=== PATIENT | female | born 1960 | race African-American/Black ===

== ENCOUNTER 2018-09-03 14:30 | Emergency (ER) | payer OTHER ==
[~2018-09-03] VITALS: Ht 162.6 cm; Wt 113.4 kg
[2018-09-03 14:53] VITALS: BP 134/83
[2018-09-03] MEDS ORDERED: HYDROcodone/APAP 5/325MG 1 TAB TABLET PO ONE (15:00)
--- NOTE | 2018-09-03 15:27 | RAD ---
Three-view left ankle study Clinical indications: Patient slipped and fell last night. Left ankle pain. FINDINGS: There is an oblique fracture of the distal left fibular metaphysis. There is minimal lateral displacement of the distal fracture segment by 2 mm. There is an avulsion fracture of the medial malleolus. There is widening of the medial aspect of the mortise ankle joint consistent with disruption of the deltoid ligament. No anterior or posterior subluxation of the talus with respect to the tibial plateau is seen otherwise. Posterior malleolus appears intact. No lytic process is seen. Plantar spur of the calcaneus is evident. IMPRESSION: Post traumatic fracture of the distal left fibula. Avulsion fracture of the medial malleolus with associated deltoid ligament disruption. Electronically signed by: Cayetano Shaw MD (09/03/2018 3:24 PM) [facility] [place]
[2018-09-03] MEDS ORDERED: HYDR-3164 PO (15:42)
--- NOTE | 2018-09-03 15:44 | PHYS DOC ---
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 She has been unable to bear weight since the injury. She denies any other injury. (JAY ARMIJO MUSIC PUBLICIST) Review of Systems Review of Systems Constitutional: Denies fever or chills [] Respiratory: Denies cough or shortness of breath [] Cardiovascular: No additional information not addressed in HPI [] GI: Denies abdominal pain, nausea, vomiting, bloody stools or diarrhea [] : Denies dysuria or hematuria [] Musculoskeletal: See history of present illness Integument: Denies rash or skin lesions [] Neurologic: Denies headache, focal weakness or sensory changes [] Endocrine: Denies polyuria or polydipsia [] All other systems were reviewed and found to be within normal limits, except as documented in this note. (JAY ARMIJO MUSIC PUBLICIST) Current Medications Current Medications Current Medications Medications (Trade) Dose Ordered Sig/Vickie Start Time Stop Time Status Last Admin Dose Admin Acetaminophen/ Hydrocodone Bitart (Lortab 5/325) 1 tab 1X ONCE 09/03/18 15:00 09/03/18 15:06 DC 09/03/18 15:21 1 TAB (REX LOMBARDO MD) Allergies Allergies Allergies Coded Allergies Type Severity Reaction Last Updated Verified No Known Drug Allergies 09/06/18 No (REX LOMBARDO MD) Physical Exam Physical Exam Constitutional: Well developed, well nourished, no acute distress, non-toxic appearance. [] Cardiovascular:Heart rate regular rhythm, no murmur [] Lungs & Thorax: Bilateral breath sounds clear to auscultation [] Abdomen: Bowel sounds normal, soft, no tenderness, no masses, no pulsatile masses. [] Skin: Warm, dry, no erythema, no rash. [] Back: No tenderness, no CVA tenderness. [] Extremities: tenderness to left ankle with edema and ecchymosis noted, no cyanosis, no clubbing, ROM decreased due to pain, pulses and sensation are intact distal to injury. Neurologic: Alert and oriented X 3, normal motor function, normal sensory function, no focal deficits noted. [] Psychologic: Affect normal, judgement normal, mood normal. [] (JAY ARMIJO APRN) Current Patient Data Vital Signs Vital Signs Date Time Temp Pulse Resp B/P (MAP) Pulse Ox O2 Delivery O2 Flow Rate FiO2 09/03/18 15:21 18 99 Room Air 09/03/18 14:53 98.8 99 134/83 (100) 98.8 (REX LOMBARDO MD) EKG EKG [] (JAY ARIMJO APRN) Radiology/Procedures Radiology/Procedures []PATIENT: NARENDRA PARISOUNT: [id number]#: [id number] : 1960 LOCATION: ER AGE: 58 SEX: F EXAM STATUS: PRE ER ORD. PHYSICIAN: JAY ARMIJO APRN REASON: tripped and fell last night PROCEDURE: ANKLE LEFT 3V Three-view left ankle study Clinical indications: Patient slipped and fell last night. Left ankle pain. FINDINGS: There is an oblique fracture of the distal left fibular metaphysis. There is minimal lateral displacement of the distal fracture segment by 2 mm. There is an avulsion fracture of the medial malleolus. There is widening of the medial aspect of the mortise ankle joint consistent with disruption of the deltoid ligament. No anterior or posterior subluxation of the talus with respect to the tibial plateau is seen otherwise. Posterior malleolus appears intact. No lytic process is seen. Plantar spur of the calcaneus is evident. IMPRESSION: Post traumatic fracture of the distal left fibula. Avulsion fracture of the medial malleolus with associated deltoid ligament disruption. Electronically signed by: Delmy Shaw MD (09/03/2018 3:24 PM) [facility] DICTATED and SIGNED BY: DELMY SHAW MD DATE: 09/03/18 1524 (JAY ARMIJO APRN) Course & Med Decision Making Course & Med Decision Making Pertinent Labs and Imaging studies reviewed. (See chart for details) The patient was given [place] for pain control in the emergency department. The patient was placed in a posterior short leg splint and was given crutches and crutch training. She is to follow-up with Dr. Hawthorne on Wednesday for further evaluation and treatment of this fracture and ligament injury. (JAY ARMIJO APRN) Course & Med Decision Making Staff Physician Addendum: I was working in the ER during the course of this patient's visit. I was available for consultation as needed, but I was not directly involved in the care of this patient. (REX LOMBARDO MD) Dragon Disclaimer Dragon Disclaimer This electronic medical record was generated, in whole or in part, using a voice recognition dictation system. (JAY ARMIJO APRN) Departure Departure Impression: Primary Impression: Fracture of distal fibula Additional Impressions: Avulsion fracture of medial malleolus Tear of deltoid ligament of ankle Disposition: 01 HOME, SELF-CARE Condition: STABLE Referrals: NON,STAFF (PCP) ZULEIKA HAWTHORNE MD Patient Instructions: Cast or Splint Care, Fibular Fracture, Adult, Treated Without Immobilization Additional Instructions: Take the medication as directed. Do not drive or operate heavy machinery while taking this medication. Follow-up with orthopedics for further management of your injury. If worsening return to the emergency department. Problem Qualifiers JAY ARMIJO APRN Sep 03, 2018 15:44 REX LOMBARDO MD Sep 13, 2018 16:19
[2018-09-06] MEDS ORDERED: HYDR-3165 PO (16:57)
== END 2018-09-03 16:00 | disposition home or self-care (01) ==
LOC: ER 14:30
DX: S82.52XA Displaced fracture of medial malleolus of left tibia, initial encounter for closed fracture (principal); S82.832A Other fracture of upper and lower end of left fibula, initial encounter for closed fracture; S93.422A Sprain of deltoid ligament of left ankle, initial encounter; W01.0XXA Fall on same level from slipping, tripping and stumbling without subsequent striking against object, initial encounter; Y93.89 Activity, other specified; Y92.89 Other specified places as the place of occurrence of the external cause; Y99.8 Other external cause status
CPT/HCPCS: 29515; 73610; 99284-25

== ENCOUNTER 2018-09-06 10:56 | Day surgery (SDC) | payer OTHER ==
[~2018-09-06 10:56] MED LIST: HYDR-3164 PO
[2018-09-06] MEDS ORDERED: IV RINGERS,LACTATED 1000ML 1,000 ML IV SCH ×2 (11:15→16:46)
[2018-09-06] MEDS ORDERED: ALBU2.5V8 INH (11:30)
[2018-09-06] MEDS ORDERED: BUDE10.22 IH (11:30)
[2018-09-06] MEDS ORDERED: fentaNYL PF VIAL 100 MCG/2 ML VIAL IV ONE (12:45)
[2018-09-06] MEDS ORDERED: PROPOFOL 20 ML IV ONE (13:07)
[2018-09-06] MEDS ORDERED: LIDOCAINE 2% PF 5 ML VIAL. ONE (13:07)
[2018-09-06] MEDS ORDERED: fentaNYL PF VIAL 100 MCG/2 ML VIAL ONE (13:08)
[2018-09-06] MEDS ORDERED: MIDAZOLAM HCL/PF 2 MG/2 ML VIAL. ONE (13:08)
[2018-09-06] MEDS ORDERED: ONDANSETRON PF 4 MG/2 ML VIAL. ONE (13:09)
[2018-09-06] MEDS ORDERED: DEXAMETHASONE SOD PHOS 20 MG/5 ML VIAL. ONE (13:09)
[2018-09-06] MEDS ORDERED: FAMOTIDINE 20 MG/2 ML VIAL ONE (13:09)
[2018-09-06] MEDS ORDERED: SEVOFLURANE 61 TO 120 MINUTES. IH ONE (16:36)
[2018-09-06] MEDS ORDERED: HYDR-3165 PO (16:57)
[2018-09-06] MEDS ORDERED: PROCHLORPERAZINE 10 MG/2 ML VIAL. IV PRN (17:00)
[2018-09-06] MEDS ORDERED: HYDROmorphone 2 MG/ML VIAL IV PRN (17:00)
[2018-09-06] MEDS ORDERED: fentaNYL PF VIAL 100 MCG/2 ML VIAL IV PRN (17:00)
[2018-09-06] MEDS ORDERED: ONDANSETRON PF 4 MG/2 ML VIAL. IV PRN (17:00)
[2018-09-06] MEDS ORDERED: LIDOCAINE 1% PF 2 ML VIAL. ID PRN (17:00)
[2018-09-06] MEDS: fentaNYL PF VIAL 100 MCG/2 ML VIAL IV PRN ×2 (17:04→17:22)
[2018-09-06] MEDS: MORPHINE SULFATE 2 MG/ML VIAL. IV PRN ×2 (17:04→17:23)
--- NOTE | 2018-09-06 17:05 | DISCH ---
DISCHARGE INSTRUCTIONS Condition on Discharge Condition on Discharge: Stable Activity After Discharge Activity Instructions for Disc: Other, see below Weight Bearing Status after Di: Touch down weight bearing Diet after Discharge Diet after Discharge: Regular Wound Incision Care Wound/Incision Care: Ice to area for comfort, Keep wound elevated, Do not change dressing Contacting the DRJennifer after DC Call your doctor for: Concerns you may have Follow-Up Follow up with: Eduardo 2 weeks DAO GILLIAM MD Sep 06, 2018 17:05
--- NOTE | 2018-09-06 17:12 | PDOC4 ---
Operative Note Operative Note Date of surgery: 09/06/2018 Preoperative diagnosis: Distal fibula fracture with lateral talus shift Postoperative diagnosis: Same with appearance of additional syndesmotic injury. Operative procedure: Operative reduction internal fixation left distal fibula fracture with syndesmotic screw fixation Surgeon: Eduardo Anesthesia: Gen. Estimated blood loss: 15 mL Complications: None Operative indications: Please see my detailed history and physical for detailed operative indications and note that patient broke her ankle over the weekend had a displaced distal fibula fracture with lateral shift of the talus. I went over x-rays with her and the anatomy of the ankle joint the necessity of anatomically restoring the ankle joint mortise and I went over the proposed operative procedure the rationale the postoperative restrictions and possibility of infection nonhealing continued pain nerve or blood vessel damage medical or other anesthetic consultations among others she is actually somewhat familiar with this from similar treatment of a previous right ankle injury and she wishes to proceed with surgical evaluation and treatment. Operative text: Patient was identified procedure verified patient placed in the supine position on the operating table. After adequate amounts of general anesthesia were administered the left lower extremity was prepped and draped in standard sterile fashion with a thigh tourniquet. After timeout was performed patient procedure identified and verified the left lower extremity was exsanguinated by Esmarch bandage tourniquet inflated to 350 mmHg a lateral incision was made subperiosteal dissection was carried out and the ankle joint was assessed. The ankle joint mortise spacing was not completely restored by reduction of the fibula alone therefore a 6 hole distal fibular locking plate was bent slightly a shaft screw was placed distal locking screws were placed syndesmotic screws then were placed and provided excellent reduction of the ankle joint mortise the remaining shaft screws were then positioned achieving anatomic reduction and multiple fluoroscopic views. Thorough irrigation carried out normal saline solution subcutaneous closure with buried Vicryl suture skin closure with octavio sterile well-padded posterior splint was placed toes were noted be warm pink find deflation of tourniquet patient was returned recovery room in stable condition having tolerated the procedure well DAO GILLIAM MD Sep 06, 2018 17:12
[2018-09-06] MEDS ORDERED: HYDROcodone/APAP 7.5/325MG 1 TAB TABLET PO ONE (17:15)
[2018-09-06] MEDS ORDERED: MORPHINE SULFATE 2 MG/ML VIAL. IV ONE (18:00)
[2018-09-06 18:51] VITALS: BP 110/68
== END 2018-09-06 18:51 | disposition home or self-care (01) ==
LOC: SURG 10:56
PROVIDERS: ATTEND Orthopaedic Surgery
DX: S82.832A Other fracture of upper and lower end of left fibula, initial encounter for closed fracture (principal); S93.432A Sprain of tibiofibular ligament of left ankle, initial encounter; J45.909 Unspecified asthma, uncomplicated; Z98.890 Other specified postprocedural states; F17.210 Nicotine dependence, cigarettes, uncomplicated; Z79.899 Other long term (current) drug therapy; M19.90 Unspecified osteoarthritis, unspecified site; Z72.89 Other problems related to lifestyle; W22.8XXA Striking against or struck by other objects, initial encounter; Y93.89 Activity, other specified; Y92.89 Other specified places as the place of occurrence of the external cause; Y99.8 Other external cause status
CPT/HCPCS: 27829; 76000; A7015; C1713; J0696; J1100; J2001; J2250; J2270; J2405; J2704; J3010; J3490; J7120

== ENCOUNTER → 2018-10-12 | Outpatient (CLI) | payer OTHER ==
[~2018-10-12] MED LIST changes: +ALBU2.5V8 INH; +BUDE10.22 IH; +HYDR-3165 PO
--- NOTE | 2018-10-12 14:46 | RAD ---
Two-view chest dated 10/12/2018. Comparison made to October 16, 2007. CLINICAL INDICATION: Shortness of breath. FINDINGS: PA and lateral views of the chest were obtained. Heart and mediastinal contours are stable. Prominent interstitial markings throughout both lungs, similar given differences in technique. No consolidation or pleural effusion. No pneumothorax. IMPRESSION: No acute radiographic abnormality. Stable findings compared to 10/16/2007. Electronically signed by: Jaior Grajeda MD (10/12/2018 2:43 PM) [facility]
== END | disposition home or self-care (01) ==
LOC: RAD 11:54
PROVIDERS: ATTEND Internal Medicine Pulmonary Disease
DX: R06.02 Shortness of breath (principal); J45.909 Unspecified asthma, uncomplicated
CPT/HCPCS: 71046

== ENCOUNTER 2018-11-29 06:14 | Day surgery (SDC) | payer OTHER ==
[~2018-11-29] VITALS: Ht 162.6 cm; Wt 108.9 kg
[~2018-11-29 06:14] MED LIST changes: +ALBU0.63 NEB; +GABA-585 PO; +HYDR-3135 PO; +TIZA4TAB2 PO
[2018-11-29] MEDS ORDERED: BUPIVAC MPF-EPI 0.5%-1:200000 30 ML VIAL. ONE (06:48)
--- NOTE | 2018-11-29 06:56 | DISCH ---
DISCHARGE INSTRUCTIONS Condition on Discharge Condition on Discharge: Stable Activity After Discharge Activity Instructions for Disc: Other, see below (recommend elevating left foot and ankle if not walking to minimize swelling) Weight Bearing Status after Di: Full weight bearing Diet after Discharge Diet after Discharge: Regular Wound Incision Care Wound/Incision Care: Change dressing (May remove dressing in 3 days then recommend large Band-Aid to prevent rubbing on the wound from socks or shoewear) Contacting the DRJennifer after DC Call your doctor for: Concerns you may have Follow-Up Follow up with: Dr. Clark 8 days Treatment/Equipment after DC Adaptive Equipment Issued: None DAO CLARK MD Nov 29, 2018 06:56
[2018-11-29] MEDS ORDERED: IV RINGERS,LACTATED 1000ML 1,000 ML IV SCH (07:00)
[2018-11-29] MEDS ORDERED: MORPHINE SULFATE 2 MG/ML VIAL. IV PRN (07:00)
[2018-11-29] MEDS ORDERED: ONDANSETRON PF 4 MG/2 ML VIAL. IV PRN (07:00)
[2018-11-29] MEDS ORDERED: fentaNYL PF VIAL 100 MCG/2 ML VIAL IV PRN ×2 (07:00)
[2018-11-29] MEDS ORDERED: ceFAZolin 2GM PREMIX 2 GM/50 ML BAG IV ONE (07:00)
[2018-11-29] MEDS ORDERED: PROCHLORPERAZINE 10 MG/2 ML VIAL. IV PRN (07:00)
[2018-11-29] MEDS ORDERED: LIDOCAINE 1% PF 2 ML VIAL. ID PRN (07:00)
[2018-11-29] MEDS ORDERED: HYDROmorphone 2 MG/ML VIAL IV PRN (07:00)
[2018-11-29] MEDS ORDERED: ONDANSETRON PF 4 MG/2 ML VIAL. ONE (07:05)
[2018-11-29] MEDS ORDERED: fentaNYL PF VIAL 100 MCG/2 ML VIAL ONE (07:05)
[2018-11-29] MEDS ORDERED: LIDOCAINE 2% PF 5 ML VIAL. ONE (07:05)
[2018-11-29] MEDS ORDERED: DEXAMETHASONE SOD PHOS 4 MG/ML VIAL ONE (07:05)
[2018-11-29] MEDS ORDERED: PROPOFOL 20 ML IV ONE (07:05)
[2018-11-29] MEDS ORDERED: SEVOFLURANE 16 TO 30 MINUTES. IH ONE (07:56)
--- NOTE | 2018-11-29 07:59 | PDOC4 ---
Operative Note Operative Note Date of surgery: 11/29/2018 Preoperative diagnosis: Retained syndesmotic screw hardware left ankle status post ORIF of ankle fracture with syndesmotic injury Postoperative diagnosis: Same Operative procedure: Removal syndesmotic screws �2 left ankle Surgeon: Eduardo Anesthesia: Gen. Estimated blood loss: 5 mL Complications: None Operative indications: Patient is a 58-year-old female that had undergone operative reduction internal fixation of a left ankle fracture about 3 months ago with placement of syndesmotic screw fixation. She has gone on to heal the ankle fracture uneventfully and is been weightbearing as tolerated and now presents for planned removal of syndesmotic screw fixation to allow the bones to articulate normally following ligament healing. I had previously gone over with her and reviewed today the rationale for keeping the rest of the plate and screw fixation intact but removal of the syndesmotic screws to allow normal function ing following the healing of the ligament, and because the superior of the 2 screws has showed some backing out and I expect to be potentially symptomatic as well. As with any surgery there is a small risk of infection or medical or anesthetic complications and I emphasized to her that the major issue is just protecting the incision until it heals keeping it elevated when she is not walking on it. She understands this and consents to surgical evaluation and treatment. Operative text: Patient was identified procedure verified patient placed in the supine position on the operating table. After adequate amounts of general anesthesia were administered the left lower extremity was prepped and draped in standard sterile fashion with a thigh tourniquet and after timeout was performed patient procedure identified and verified, syndesmotic screws were located over the midpoint of the incision and both syndesmotic screws were removed without difficulty. Ankle joint mortise and stability was demonstrated under fluoros copic guidance. Thorough irrigation carried out normal saline solution a total of 8 mL have percent Marcaine with epinephrine was instilled around the wound edges and skin closure with nylon suture in vertical mattress fashion sterile dressings were applied patient was returned to recovery room in stable condition having tolerated procedure well. Tourniquet was not used for the procedure DAO GILLIAM MD Nov 29, 2018 07:59
[2018-11-29 08:35] VITALS: BP 96/67
[2018-12-07] MEDS ORDERED: PRED20TA PO (22:43)
[2018-12-07] MEDS ORDERED: DIAZ5TAB PO (22:43)
[2018-12-24] MEDS ORDERED: AMIT50TA PO (19:29)
== END 2018-11-29 09:05 | disposition home or self-care (01) ==
LOC: SURG 06:14
PROVIDERS: ATTEND Orthopaedic Surgery
DX: Z47.2 Encounter for removal of internal fixation device (principal); J45.909 Unspecified asthma, uncomplicated; F17.210 Nicotine dependence, cigarettes, uncomplicated; Z98.890 Other specified postprocedural states
CPT/HCPCS: 20680; 76000; A7015; J0696; J1100; J2001; J2405; J2704; J3010; J3490

== ENCOUNTER → 2018-12-05 | Outpatient (CLI) | payer OTHER ==
[2018-11-29 08:35] VITALS: BP 96/67
[~2018-12-05] MED LIST changes: +DIAZ5TAB PO; +PRED20TA PO; +TIZA4TAB PO; -TIZA4TAB2 PO
--- NOTE | 2018-12-05 13:38 | RAD ---
CT CHEST WO CONTRAST Indication: Cough. Smoker. Exposure: One or more of the following individualized dose reduction techniques were utilized for this examination: 1. Automated exposure control 2. Adjustment of the mA and/or kV according to patient size 3. Use of iterative reconstruction technique. Technique: Standard imaging without intravenous contrast. Comparison: None FINDINGS: Visualized thyroid appears unremarkable. No significant pathologic lymph node enlargement is identified. Limited vascular exam without contrast. Aorta is nonaneurysmal. Ascending aorta measures about 3.5 cm. No pericardial or pleural effusion is identified. Emphysematous changes are identified. Linear opacities in the anterior right lower lobe, right middle lobe and anteroinferior right upper lobe, likely atelectasis or scarring. No consolidating infiltrates. Linear markings also identified in the lingula of the left lung. Trachea and mainstem bronchi are patent. Scans to the upper abdomen are limited due to technique but demonstrate no obvious acute finding. Degenerative changes of the spine. Vertebral body height is maintained. IMPRESSION: Linear opacities in both lungs, greater on the right. Most likely represent atelectasis or fibrosis. Acute inflammatory/infectious etiology considered less likely. No airspace lobar consolidative infiltrate is seen. Short-term follow-up could be of benefit if symptoms do not improve. Electronically signed by: Jairo Ndiaye MD (12/05/2018 1:36 PM) [facility]
== END | disposition home or self-care (01) ==
LOC: CT 11:41
PROVIDERS: ATTEND Internal Medicine Pulmonary Disease
DX: J43.9 Emphysema, unspecified (principal); J98.4 Other disorders of lung; F17.200 Nicotine dependence, unspecified, uncomplicated
CPT/HCPCS: 71250

== ENCOUNTER → 2019-01-23 | Outpatient (CLI) | payer OTHER ==
[2019-01-20 10:13] VITALS: BP 131/60
[~2019-01-23] MED LIST changes: +AMIT50TA PO; -TIZA4TAB PO; +TIZA4TAB2 PO; +ZOLPIDEM 5 MG TABLET. PO ONE
--- NOTE | 2019-01-24 09:10 | SLEEP ---
DATE OF STUDY: 01/23/2019 SLEEP STUDY ATTENDING PHYSICIAN: Roni Bruno MD REFERRING PHYSICIAN: Todd Liu MD The patient is a 58 years old, who weighs 226 pounds with a BMI of 48. The patient's [place] score was 3. The patient underwent sleep study performed at [facility] with a diagnostic study. During the night study, the patient spent 441 minutes in bed and slept for 289 minutes with a low sleep efficiency of 65%. Sleep latency was prolonged at 146 minutes with a REM latency of 86 minutes. Overall, sleep architecture showed normal stage 1 sleep, increased stage 2 sleep, normal slow wave and reduced REM sleep, which is 14% of total sleep time. During the night study, the patient had 1 obstructive apnea, no mixed or central apneas and 38 hypopneas. The patient's apnea-hypopnea index was 8 per hour with a supine index of 2 per hour and a REM index of 41 per hour. EKG monitoring revealed an average heart rate of 88 beats per minute. No sustained arrhythmias observed. Nocturnal oximetry study revealed mean oxygen saturation 94% with the lowest of 83%. 6.9% of time oxygen saturation remained between 80% and 89%. No clinically significant PLM seen. Due to low AHI, the patient did not meet the split night criteria for CPAP initiation. IMPRESSION: 1. Mild sleep apnea-hypopnea syndrome with worsening during rapid eye movement sleep. Total apnea-hypopnea index 8 per hour with a rapid eye movement apnea-hypopnea index of 41 per hour. 2. Nocturnal hypoxia predominantly seen during rapid eye movement sleep-related apneas. 3. No clinically significant periodic limb movements. RECOMMENDATIONS: 1. The patient has mild sleep apnea. I would recommend weight loss as the initial form of treatment. However, if the patient has other comorbid conditions, then the patient's sleep apnea should be treated with either CPAP trial versus oral appliance. 2. Avoid [employer] depressants. 3. Cautioned regarding driving until symptoms of sleep apnea resolve with the above recommendation. GARIMA JAMES MD DR: AGUSTIN/danya JOB#: [id number] / [id number] ecc RONI BRUNO MD, GEORGE MD
== END | disposition home or self-care (01) ==
LOC: SLPLAB 18:40
PROVIDERS: ATTEND Internal Medicine Pulmonary Disease
DX: G47.33 Obstructive sleep apnea (adult) (pediatric) (principal); G47.34 Idiopathic sleep related nonobstructive alveolar hypoventilation
CPT/HCPCS: 95810

== ENCOUNTER → 2020-03-22 | Outpatient (CLI) | payer OTHER, MEDICAID ==
[2019-01-24 06:51] VITALS: BP 127/70
[~2020-03-22] MED LIST changes: -ZOLPIDEM 5 MG TABLET. PO ONE
--- NOTE | 2020-03-22 10:34 | RAD ---
EXAM: CT CHEST WITHOUT CONTRAST HISTORY: Lung cancer screening, smoker COMPARISON: CT chest 12/05/2018 TECHNIQUE: Helical CT of the chest performed without contrast. Coronal and sagittal reformats were obtained. One or more of the following individualized dose reduction techniques were utilized for this examination: 1. Automated exposure control 2. Adjustment of the mA and/or kV according to patient size 3. Use of iterative reconstruction technique. FINDINGS: Thyroid gland and thoracic inlet: Unremarkable. Heart and great vessels: The heart is normal in size. No pericardial effusion. Thoracic aorta is normal in caliber. Mediastinum and sonal: Small left superior mediastinal lymph node measuring 5 mm short axis, nonspecific (series 10, series 2). No pathologically enlarged lymph nodes. Lungs and pleura: There is a 1.7 mm nodule in the right lower lobe with smooth margins and no definite calcification (image 192). A 3 mm linear nodule is along the left major fissure (image 126, series 2). This was not seen on prior exam, however this may be due to differences in slice thickness. A calcified granuloma in the lingula is unchanged (image 140, series 2). Linear atelectasis in the right lower lobe has resolved. Mild bandlike atelectasis in the right middle lobe and lingula is unchanged. Chest wall and axillae: No axillary lymphadenopathy. Upper abdomen: Unremarkable. Bones: There is mild dextroscoliosis of the lumbar spine. Mild degenerative disc disease at T8-T9 and T9-T10. 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 IMPRESSION: Two tiny pulmonary nodules measuring up to 3 mm. Lung-Rads Category 2-benign appearance. Recommend continued annual screening with low dose CT. Electronically signed by: Josee Pierce MD (03/22/2020 10:31 AM) [id number]
== END ==
LOC: CT 09:23
PROVIDERS: ATTEND Internal Medicine Pulmonary Disease
DX: Z12.2 Encounter for screening for malignant neoplasm of respiratory organs (principal); R91.1 Solitary pulmonary nodule; J98.11 Atelectasis; J84.10 Pulmonary fibrosis, unspecified; M41.86 Other forms of scoliosis, lumbar region; M51.34 Other intervertebral disc degeneration, thoracic region; M19.019 Primary osteoarthritis, unspecified shoulder; F17.200 Nicotine dependence, unspecified, uncomplicated
CPT/HCPCS: G0297

== ENCOUNTER → 2021-08-27 | Outpatient (CLI) | payer OTHER, MEDICAID ==
[2019-01-24 06:51] VITALS: BP 127/70
[~2021-08-27] MED LIST changes: +TIZA-75 PO; -TIZA4TAB2 PO
--- NOTE | 2021-08-28 04:15 | RAD ---
EXAMINATION: XR CHEST 2V CLINICAL HISTORY: COPD, lung nodule. EXAM DATE/TIME: 08/27/2021 2:46 PM COMPARISON: LDCT chest 03/22/2020, Chest radiograph 12/07/2018 FINDINGS: Lines, Tubes, and Devices: None. Cardiomediastinal Silhouette: Normal heart size. Lungs and Pleura: 1.4 cm nodular opacity in the lateral left upper lung zone. Old calcified granuloma tous disease. No evidence of focal airspace consolidation or pleural effusion. Bones and Soft Tissues: Degenerative changes and mild dextroconvex curvature in the thoracic spine. IMPRESSION: No evidence of acute cardiopulmonary abnormality. 1.4 cm nodular opacity in the left upper lung zone, possibly related to old calcified granulomatous d isease but a CT chest without intravenous contrast could be obtained for further evaluation. Electronically signed by: Leoncio Michele DO (08/28/2021 4:12 AM) [facility]
== END ==
LOC: RAD 14:20
PROVIDERS: ATTEND Internal Medicine Pulmonary Disease
DX: R91.8 Other nonspecific abnormal finding of lung field (principal); D71 Functional disorders of polymorphonuclear neutrophils; M47.814 Spondylosis without myelopathy or radiculopathy, thoracic region; J44.9 Chronic obstructive pulmonary disease, unspecified; M43.8X4 Other specified deforming dorsopathies, thoracic region
CPT/HCPCS: 71046

== ENCOUNTER → 2021-09-10 | Outpatient (CLI) | payer OTHER ==
[2019-01-24 06:51] VITALS: BP 127/70
[~2021-09-10] MED LIST changes: +INSU200I4 SQ
== END ==
LOC: LAB 10:11
PROVIDERS: ATTEND Orthopaedic Surgery
DX: Z01.812 Encounter for preprocedural laboratory examination (principal); Z20.822 Contact with and (suspected) exposure to COVID-19
CPT/HCPCS: U0003

== ENCOUNTER 2021-09-12 07:00 | Day surgery (SDC) | payer OTHER, MEDICAID ==
[~2021-09-12] VITALS: Ht 162.6 cm; Wt 110.0 kg
[2021-09-12] MEDS ORDERED: ONDANSETRON PF 4 MG/2 ML VIAL. ONE (07:33)
[2021-09-12] MEDS ORDERED: PROPOFOL 10 MG/ML (20ML) VIAL. IV ONE (07:33)
[2021-09-12] MEDS ORDERED: DEXAMETHASONE SOD PHOS 4 MG/ML VIAL ONE (07:33)
[2021-09-12] MEDS ORDERED: fentaNYL PF VIAL 100 MCG/2 ML VIAL ONE (07:35)
[2021-09-12 07:37] VITALS: BP 108/67
[2021-09-12] MEDS ORDERED: BUPIVACAINE-EPI 0.25%-1:200000 MPF 30 ML VIAL. ONE (07:39)
[2021-09-12] MEDS ORDERED: IV RINGERS,LACTATED 1000ML 1,000 ML IV SCH (08:00)
[2021-09-12] MEDS: INSULIN LISPRO 100 UNIT/ML 3ML VIAL for OP,RR ONLY. SQ PRN ×2 (08:02→08:53)
--- NOTE | 2021-09-12 08:09 | DISCH ---
DISCHARGE INSTRUCTIONS Condition on Discharge Condition on Discharge: Stable Activity After Discharge Activity Instructions for Disc: Activity as tolerated, Avoid exertion Bathing Instructions: Shower-keep dressing dry, No Tub Bath until see Driving Instructions after Dis: Do not drive today Weight Bearing Status after Di: As tolerated Diet after Discharge Diet after Discharge: Regular Wound Incision Care Wound/Incision Care: Ice to area for comfort, Keep wound elevated, Change dressing Other wound/incision instructi: May change dressing postoperative day #3 Contacting the DRJennifer after DC Call your doctor for: Concerns you may have Follow-Up Follow up with: 10 to 14 days Treatment/Equipment after DC Adaptive Equipment Issued: None HUBER KHALIL Jr. DO Sep 12, 2021 08:09
[2021-09-12] MEDS ORDERED: LIDOCAINE 1% PF 5 ML VIAL. ONE (08:23)
[2021-09-12] MEDS ORDERED: PHENYLEPHRINE in 0.9% NACL PF 1 MG/10 ML SYRINGE. IV ONE (08:24)
--- NOTE | 2021-09-12 08:37 | PDOC4 ---
OPERATIVE NOTE Date: Date: Sep 12, 2021 Pre-Op Diagnosis: 1. 61-year-old female history left ankle ORIF 2. Left lateral ankle scar adhesion Post-Op Diagnosis: Same Procedure Performed: 1. Left ankle scar revision Surgeon: Faina Anesthesia Type: General Blood Loss: 5 cc Specimans Obtained: None Complications: Patient tolerated the procedure well without any apparent complications. Operative Note: See dictation HENRY MARK Sep 12, 2021 08:37
[2021-09-12] MEDS ORDERED: INSULIN LISPRO 100 UNIT/ML 3ML VIAL for OP,RR ONLY. SQ ONE ×2 (09:00)
[2021-09-12] MEDS ORDERED: HYDROcodone/APAP 10/325 1 TAB TABLET PO ONE (09:15)
[2021-09-12 10:05] VITALS: BP 105/78
--- NOTE | 2021-09-12 10:44 | OP ---
DATE OF SURGERY: 09/12/2021 PREOPERATIVE DIAGNOSIS: Adherent and painful scar formation, left ankle. POSTOPERATIVE DIAGNOSIS: Adherent and painful scar formation, left ankle. PROCEDURE: Excision scar formation and revision scar, left ankle. SURGEON: Nader Eisenberg Jr, DO. BILINGUAL OFFICE ASSISTANT: Howard Vaughn. ANESTHESIA: General. COMPLICATIONS: None. ESTIMATED BLOOD LOSS: Less than 5 mL. DESCRIPTION OF PROCEDURE: The patient was taken to the operative suite, given a general anesthetic. Left lower extremity was then prepped and draped in sterile fashion. Incision was made through skin and subcutaneous tissues elliptical in nature around the eschar, which was noted. It was not draining, but this was excised in its entirety. The underlying subcutaneous tissue was mobilized from the fibula itself. The fibula was intact without any abnormalities or problems at this point. But after mobilization of the anterior and posterior flaps of this incision, this was freely mobile. This was then reapproximated in an interrupted fashion using 3-0 nylon. Local was placed within the area. Sterile dressing was applied. Tourniquet was deflated with good return of pulses and capillary refill. The patient was then taken from the operative bed to the postoperative bed, taken to the PACU in stable condition. JASS/CAMILLA/LALIT DR: Coty TID: [id number]
== END 2021-09-12 10:55 | disposition home or self-care (01) ==
LOC: SURG 07:00
PROVIDERS: ATTEND Orthopaedic Surgery
DX: M25.572 Pain in left ankle and joints of left foot (principal); E11.9 Type 2 diabetes mellitus without complications; J44.9 Chronic obstructive pulmonary disease, unspecified; G47.30 Sleep apnea, unspecified; E66.9 Obesity, unspecified; M19.90 Unspecified osteoarthritis, unspecified site; Z87.891 Personal history of nicotine dependence; Z79.899 Other long term (current) drug therapy; Z98.890 Other specified postprocedural states; Z88.6 Allergy status to analgesic agent
CPT/HCPCS: 13132; 82962; J0690; J1100; J2370; J2405; J2704; J3010; J3490; A4930; J1815

== ENCOUNTER → 2021-10-20 | Outpatient (CLI) | payer OTHER, MEDICAID ==
[~2021-10-20] MED LIST changes: +ASPI81TA59 PO
== END ==
LOC: LAB 15:15
PROVIDERS: ATTEND Podiatrist
DX: Z01.812 Encounter for preprocedural laboratory examination (principal); Z20.822 Contact with and (suspected) exposure to COVID-19; M20.22 Hallux rigidus, left foot
CPT/HCPCS: U0003

== ENCOUNTER 2021-10-22 10:01 | Day surgery (SDC) | payer OTHER, MEDICAID ==
[~2021-10-22] VITALS: Ht 162.6 cm; Wt 106.3 kg
[~2021-10-22 10:01] MED LIST changes: -ASPI81TA59 PO; +DEXAMETHASONE SOD PHOS 4 MG/ML VIAL ONE; +IV RINGERS,LACTATED 1000ML 1,000 ML IV SCH; +ONDANSETRON PF 4 MG/2 ML VIAL. ONE; +PROCHLORPERAZINE 10 MG/2 ML VIAL. IVP PRN; +PROPOFOL 10 MG/ML (20ML) VIAL. IV ONE; +fentaNYL PF VIAL 100 MCG/2 ML VIAL IVP PRN; +fentaNYL PF VIAL 100 MCG/2 ML VIAL ONE
[2021-10-22 10:32] VITALS: BP 150/74
[2021-10-22] MEDS ORDERED: BUPIVACAINE MPF 0.25% 30 ML VIAL. ONE (10:48)
--- NOTE | 2021-10-22 11:31 | PDOC1 ---
History and Physical Date of Service: DOS: DATE: 10/22/21 TIME: 10:59 Chief Complaint: Chief Complain: Left foot pain History of Present Illness: HPI: 61-year-old female with past medical history of lower back pain, half a pack per week smoker, obesity, COPD who comes in for elective day surgery for her left toe pain diagnosed with hallux rigidus of the left foot. Patient currently denies any fevers, chest pain, abdominal pain, dysuria, hematuria or bloody bowel movements. Past Medical/Surgical History: PMH/PSH: Past medical to chronic back pain, asthma, obesity, COPD past surgical history of ORIF of the left distal fibula and left ankle syndesmotic screw removal. Allergies: Allergies: Coded Allergies: morphine (Verified Allergy, Intermediate, ITCHING,RASH, 10/22/21) Family History: Family History: Reviewed with no relative findings in the chart Social History: Social History: Denies alcohol or drug abuse Current Medications: Current Medications Current Medications Fentanyl Citrate (Fentanyl 2ml Vial) 25 mcg PRN Q5MIN PRN IVP MILD PAIN 1-3; Start 10/22/21 at 06:00; Stop 10/22/21 at 20:00 Fentanyl Citrate (Fentanyl 2ml Vial) 50 mcg PRN Q5MIN PRN IVP MODERATE PAIN 4- 6; Start 10/22/21 at 06:00; Stop 10/22/21 at 20:00 Ringer's Solution 1,000 ml @ 30 mls/hr Q24H IV Last administered on 10/22/21at 10:39; Start 10/22/21 at 06:00; Stop 10/22/21 at 17:59 Prochlorperazine Edisylate (Compazine) 5 mg PACU PRN PRN IVP NAUSEA, MRX1; Start 10/22/21 at 06:00; Stop 10/22/21 at 20:00 Cefazolin Sodium/ Dextrose 50 ml @ 100 mls/hr 1X PREOP PRN IV PRIOR TO PROCEDURE; Start 10/22/21 at 06:00; Stop 10/22/21 at 18:00 Propofol (Diprivan) 200 mg STK-MED ONCE IV ; Start 10/22/21 at 09:50; Stop 10/22/21 at 09:51; Status DC Ondansetron HCl (Zofran) 4 mg STK-MED ONCE .ROUTE ; Start 10/22/21 at 09:51; Stop 10/22/21 at 09:51; Status DC Dexamethasone Sodium Phosphate (Decadron) 4 mg STK-MED ONCE .ROUTE ; Start 10/22/21 at 09:51; Stop 10/22/21 at 09:51; Status DC Fentanyl Citrate (Fentanyl 2ml Vial) 100 mcg STK-MED ONCE .ROUTE ; Start 10/22/21 at 09:51; Stop 10/22/21 at 09:51; Status DC Bupivacaine HCl (Sensorcaine Mpf 0.25%) 30 ml STK-MED ONCE .ROUTE ; Start 10/22/21 at 10:48; Stop 10/22/21 at 10:49; Status DC Active Scripts Active Reported Amitriptyline Hcl 50 Mg Tablet 1 Tab PO QHS Albuterol Sulfate Neb Soln (Albuterol Sulfate) 0.63 Mg/3 Ml Vial.neb 1 Vial NEB PRN PRN Tizanidine Hcl 4 Mg Tablet 1 Tab PO PRN TID PRN Gabapentin (Gabapentin) 100 Mg Capsule 100 Mg PO TID Leighton 10-325 Tablet (Acetaminophen/Hydrocodone Bitart) 1 Each Tablet 1 Tab PO QID Proair Hfa (Albuterol Sulfate) 8.5 Gm Hfa.aer.ad 1 Puff INH PRN Q6HRS Symbicort 80-4.5 Mcg Inhaler (Budesonide/Formoterol Fumarate) 10.2 Gm Hfa.aer.ad 2 Puff IH BID ROS: Review of Systems Review of System REVIEW OF SYSTEMS: GENERAL: Denies weakness SKIN: No bruising, hair changes or rashes. EYES: No blurred, double or loss of vision. NOSE AND THROAT: No history of nosebleeds, hoarseness or sore throat. HEART: No history of palpitations, chest pain or shortness of breath on exertion. LUNGS: Denies cough, hemoptysis, wheezing or shortness of breath. GASTROINTESTINAL: Denies changes in appetite, nausea, vomiting, diarrhea or constipation. GENITOURINARY: No history of frequency, urgency, hesitancy or nocturia. NEUROLOGIC: Denies history of numbness, tingling, or tremor. PSYCHIATRIC: No history of panic, anxiety or depression. ENDOCRINE: No history of heat or cold intolerance, polyuria or polydipsia. EXTREMITIES: Denies joint pain, pain on walking or stiffness. Physical Exam: Vital Signs: Vital Signs Date Time Temp Pulse Resp B/P (MAP) Pulse Ox O2 Delivery O2 Flow Rate FiO2 10/22/21 10:35 97.6 98 18 150/74 95 Room Air 97.6 Physcial Exam: General: Well developed, well nourished, no acute distress, well appearing HEENT: Pupils equally round and reactive to light, EOMI, no discharge, normal conjunctiva Neck: Supple, no nuchal rigidity, no JVD, trachea midline, no tenderness Cardiac: RRR, no murmurs, no gallops, no rubs Chest/Lungs: CTAB, no wheeze, no rhonchi, no crackles Abdomen: soft, non-distended, no guarding, no peritoneal signs, non-tender Back: No tenderness Extremities: no edema, pulses intact, non-tender,capillary refill <3 sec bilateral upper and lower extremities, Neuro: Alert and oriented x 4, no focal deficits, normal speech Labs: Labs: Laboratory Tests Test 10/22/21 09:10 POC SARS CoV-2 Antigen Negative (NEGATIVE) Laboratory Tests Test 10/22/21 09:10 POC SARS CoV-2 Antigen Negative (NEGATIVE) Images: Images PROCEDURE: FOOT LEFT 3V XR EXAM OF ANKLE_LEFT 3V, XR FOOT_LEFT 3 VIEWS History: Left ankle and foot pain. Comparison: 08/27/2021 Findings: Osseous mineralization is normal. No acute fracture or dislocaton. The ankle mortise and talar dome are intact. There is pes planus alignment. Partial ossification of the distal tibiofibular syndesmosis. Mild degenerative changes of the anterior tibiotalar joint and dorsal talonavicular joints. Small plantar calcaneal enthesophyte. Mild to moderate degenerative changes at the first metatarsophalangeal joint. No focal soft tissue swelling. Impression: 1. Mild degenerative and posttraumatic changes of the left ankle and foot without acute osseous abnormality. Assessment/Plan Assessment/Plan 61-year-old female who presents for surgery with podiatry. Tobacco abuse Patient low risk Barth score for non-vascular extremity surgery. Anticipate discharge to home after surgery Please call hospitalist for further questions. Thank you Justifications for Admission Other Justification SHARON BRIONES MD October 22, 2021 11:31
--- NOTE | 2021-10-22 12:05 | PDOC4 ---
OPERATIVE NOTE Date: Date: October 22, 2021 Pre-Op Diagnosis: Left hallux limitus with subsequent hallux interphalangeal joint H PK Post-Op Diagnosis: Same as above with additional osteochondrosis/osteomalacia to the dorsal lateral aspect of first metatarsal head approximately 30% involvement of the articular surface Procedure Performed: Left cheilectomy Surgeon: Rosie Dwyer DPM Anesthesia Type: General Blood Loss: 10 cc Specimans Obtained: None Findings: Osteochondrosis/osteomalacia limited to the dorsal lateral aspect of the first metatarsal head, approximately 30% surface area Prior to surgery, dorsiflexion across the left first MTPJ was 15 degrees loaded, 30 degrees unloaded. After cheilectomy, dorsiflexion across the left first MTPJ was 30 to 40 degrees loaded, 60 degrees unloaded. There was no crepitus or catching or subluxation across the first MTPJ after surgery. Complications: None Operative Note: Under mild sedation, patient was brought into the operating room and placed on operating table in a supine position. A formal timeout confirming patient's identity, procedure, procedure site was carried out. Following IV prophylactic antibiotics, general anesthesia, a well-padded ankle tourniquet was placed on the left lower extremity. Following Betadine skin prep, 8 cc of 0.25% Marcaine plain was infiltrated into the distal first ray in a Branch block fashion. The left lower extremity was then scrubbed, prepped and draped using aseptic techniques. The left lower extremity was exsanguinated and then the tourniquet was inflated to 250 mill mercury. Then the attention was directed to the dorsal medial first MTPJ. A linear incision was made and carried deep with care to protect and retract all the neurovascular bundles. The MTPJ capsule was visualized and incised at the dorsal medial aspect of the joint. The medial and lateral collaterals were released around the MTPJ. A McGlamery was used to free the plantar sesamoids and noted adequate gliding with passive MTPJ range of motion without any crepitus or catching. At this time, we noted moderate dorsal osteophyte and medial eminence to the first metatarsal head. At the dorsal lateral aspect of the first metatarsal head, there was 30% osteochondrosis/osteomalacia without any significant synovitis across the MTPJ. A sagittal saw was used and removed dorsal 1/3-1/4 of the first metatarsal head. The medial and lateral first metatarsal head was also remodeled to a smooth surface. At this time, passive first MTPJ range of motion was still minimally limited. The decision was made to remove a wafer from the base of first proximal phalangeal base. Afterwards, passive dorsiflexion noted 30 to 40 degrees loaded, 60 degrees unloaded. There was no joint subluxation with passive range of motion across the first MTPJ. Intraoperative observation now noted remaining 10% osteomalacia to the dorsal lateral of the first metatarsal head. Then the surgical site was irrigated with copious saline solution. The MTPJ capsule was closed with 3-0 Vicryl. The skin was closed in layers with 4 Monocryl and 4 nylon. The surgical site was dressed with Xeroform, gauze, Kerlix and Jacky. Tourniquet was deflated and adequate digital perfusion was noted. Patient tolerated procedure anesthesia well and was transferred to PACU for continuous recovery with vital signs stable, neurovascular status intact. Pending left foot 3 view x-ray. ROSIE DWYER DPM October 22, 2021 12:05
[2021-10-22] MEDS ORDERED: oxyCODONE/APAP 5/325 1 TAB TABLET PO ONE (12:15)
[2021-10-22] MEDS ORDERED: GABAPENTIN 100 MG CAPSULE. PO ONE (12:15)
[2021-10-22] MEDS ORDERED: ACETAMINOPHEN 325 MG TABLET. PO ONE (12:15)
[2021-10-22] MEDS ORDERED: ASPI81TA59 PO (12:19)
[2021-10-22] MEDS: INSULIN LISPRO 100 UNIT/ML 3ML VIAL for OP,RR ONLY. SQ PRN ×2 (12:39→13:38)
[2021-10-22] MEDS ORDERED: INSULIN LISPRO 100 UNIT/ML 3ML VIAL for OP,RR ONLY. SQ ONE ×2 (13:40)
[2021-10-22 13:50] VITALS: BP 126/78
--- NOTE | 2021-10-23 08:05 | RAD ---
XR FOOT_LEFT 3 VIEWS History: Reason: POST OP / Spl. Instructions: / History: Technique: 3 views left foot. Comparison: October 16, 2021 Findings: Interval postoperative changes first metatarsal. There is adjacent soft tissue gas. No dislocation. N o acute fracture. Mild midfoot degenerative changes. Small plantar cannula spur. Impression: 1. Interval postoperative changes first metatarsal. Electronically signed by: Clifford Murphy DO (10/23/2021 8:03 AM) [id number]
== END 2021-10-22 14:00 | disposition home or self-care (01) ==
LOC: SURG 10:01
PROVIDERS: ATTEND Podiatrist
DX: M20.5X2 Other deformities of toe(s) (acquired), left foot (principal); M20.22 Hallux rigidus, left foot; E11.9 Type 2 diabetes mellitus without complications; J44.9 Chronic obstructive pulmonary disease, unspecified; G47.30 Sleep apnea, unspecified; E66.9 Obesity, unspecified; F32.9 Major depressive disorder, single episode, unspecified; Z87.891 Personal history of nicotine dependence; Z79.899 Other long term (current) drug therapy; Z98.890 Other specified postprocedural states
CPT/HCPCS: 28289; 73630; 82962; A4930; A6402; J0690; J1100; J1815; J2405; J2704; J3010; J3490; A4657